=== PATIENT | female | born 1980 | race Caucasian/White ===

== ENCOUNTER 2021-07-10 12:39 | Outpatient (CLI) | payer SELFPAY ==
--- NOTE | 2021-07-11 14:21 | Ultrasound Report ---
LIMITED ULTRASOUND OF LEFT BREAST: 07/10/2021 CLINICAL: Palpable left breast lump. Comparison is made to exam dated: 07/10/2021 mammogram - [facility]. Color flow ultrasound of the left breast 2 o'clock, and retroareolar regions was performed. [facility] [place] images of the real-time examination were reviewed. There is a 2 cm x 2.3 cm x 1.2 cm oval complex mass with an indistinct margin in the left breast at 2 o'clock anterior depth. This oval partially cystic and solid mass is heterogeneously echogenic. Th ere are associated microcalcifications as seen on mammogram. This correlates as palpated and with [facility] mography findings. Color flow imaging demonstrates that there is vascularity present. IMPRESSION: SUSPICIOUS OF MALIGNANCY The 2 cm mass in the left breast has a differential diagnosis of apocrine metaplasia, fibrocystic jimi nge, or carcinoma, and is suspicious of malignancy. An ultrasound guided biopsy is recommended. Fin dings and recommendations were discussed with the patient in person by Dr. Levi Adame at time of ex am. This exam was interpreted at Station ID: [id number]. Electronically Signed By: Pat prabhakar/:07/10/2021 14:14:45 Ultrasound BI-RADS: 4 Suspicious for malignancy BI-RADS CATEGORY: (4) - 4 None [id number] Immediate follow-up LATERALITY: ()
--- NOTE | 2021-07-11 14:21 | Mammography Report ---
BILATERAL DIGITAL DIAGNOSTIC MAMMOGRAM 3D/2D: 07/10/2021 CLINICAL: Baseline exam. Palpable left breast lump. No prior exams were available for comparison. The tissue of both breasts is extremely dense, which l owers the sensitivity of mammography. There is a possible 1.9 cm oval equal density asymmetry with an obscured margin and fine punctate stu cifications in the left breast at 5 o'clock in the retroareolar region. This is seen in additional v iews. This correlates as palpated. No other significant masses, calcifications, or other findings are seen in either breast. IMPRESSION: INCOMPLETE: NEEDS ADDITIONAL IMAGING EVALUATION The possible 1.9 cm oval equal density asymmetry in the left breast remains indeterminate. An ultras ound is recommended. This was performed immediately following this exam. This exam was interpreted at Station ID: [id number]. NOTE: For mammograms, a report in lay terms will be sent to the patient. Approximately 15% of breast malignancies will not be visualized mammographically. In the management of a palpable breast mass, a negative mammogram must not discourage biopsy of a clinically suspicious lesion. Electronically Signed By: Pat prabhakar/:07/10/2021 13:37:48 ACR BI-RADS Category 0: Incomplete 3340F PARENCHYMAL PATTERN: (VD) - The breast(s) demonstrate(s) extremely dense parenchyma, limiting the sen sitivity of mammography. BI-RADS CATEGORY: (0) - 0 Ultrasound [id number] Immediate follow-up LATERALITY: (B)
== END 2021-07-10 12:40 | disposition home or self-care (01) ==
LOC: DI 12:39
PROVIDERS: ATTEND Surgery
DX: N63.21 Unspecified lump in the left breast, upper outer quadrant (principal)